=== PATIENT | male | born 1990 | race Caucasian/White ===

== ENCOUNTER 2021-05-04 11:01 | Emergency (ER) | payer SELFPAY ==
[~2021-05-04] VITALS: Ht 175.3 cm; Wt 99.8 kg
[2021-05-04 11:07] VITALS: BP 129/74
--- NOTE | 2021-05-04 11:11 | NUR ---
PT AMBULATED TO BED 11 WITH STEADY GAIT
--- NOTE | 2021-05-04 11:15 | NUR ---
31 Y/O MALE PRESENTS TO ED WITH LACERATION TO TOP OF THE R HEAD. PT STATES HE FELL OFF LADDER APPROX 1 STORY AND HIT HIS HEAD ON A PIECE OF WOOD WITH LOSS OF CONSCIOUSNESS X5 MINUTES. PT C/O 8/10 HEADACHE THAT HE DESCRIBES THROBBING. PT ALSO C/O LIGHTHEADEDNESS AND DIZZINESS. PT DENIES NECK PAIN/ VISUAL CHANGES. CONTROLLED BLEEDING AT THIS TIME. PT A/O X4 WITH EVEN AND UNLABORED RESPIRATIONS. PT IN GOWN, BED IN LOWEST POSITION, BRAKES LOCKED, X2 SIDERAILS UP FOR SAFETY. MEDHX: DENIES NKDA
--- NOTE | 2021-05-04 11:29 | NUR ---
DR HANSON AT BEDSIDE EVALUATING PT
[2021-05-04] MEDS ORDERED: LIDOCAINE MPF 1% 10 MG/ML VIAL INJ ONE (11:40)
[2021-05-04] MEDS ORDERED: HYDROcodone/APAP 5/325 MG 1 TAB TAB PO ONE (11:40)
[2021-05-04] MEDS ORDERED: ONDANSETRON 4 MG ODT PO ONE (11:40)
--- NOTE | 2021-05-04 12:00 | NUR ---
PT TAKEN TO CT VIA [facility]
--- NOTE | 2021-05-04 12:07 | NUR ---
PT BACK FROM CT
--- NOTE | 2021-05-04 12:55 | NUR ---
PT RESTING IN BED WITH EVEN AND UNLABORED RESPIRATION. BED IN LOWEST POSITION, BRAKES LOCKED, X2 SIDERAILS UP FOR SAFETY.
[2021-05-04] MEDS ORDERED: ACET-8386 PO (13:50)
--- NOTE | 2021-05-04 13:55 | NUR ---
Patient discharged with v/s stable. Written and verbal after care instructions ABOUT MEDICATION AND HEAD INJURY/LACERATION CARE given and explained. Patient alert, oriented and verbalized understanding of instructions. Ambulatory with steady gait. All questions addressed prior to discharge. ID band removed. Patient advised to follow up with PMD. Rx of HYDROCODONE/ACETAMINOPHEN 5-325MG given. Patient educated on indication of medication including possible reaction and side effects. Opportunity to ask questions provided and answered.
[2021-05-04 13:58] VITALS: BP 129/74
== END 2021-05-04 13:55 | disposition home or self-care (01) ==
LOC: MED 11:01
DX: S01.01XA Laceration without foreign body of scalp, initial encounter (principal); Z79.899 Other long term (current) drug therapy; W11.XXXA Fall on and from ladder, initial encounter; Y93.89 Activity, other specified; Y92.89 Other specified places as the place of occurrence of the external cause; Y99.0 Civilian activity done for income or pay
CPT/HCPCS: 12002; 70450; 99284; J2001; Q0162